=== PATIENT | male | born 1955 | race Caucasian/White ===

== ENCOUNTER 2019-07-12 00:15 | Day surgery (SDC) | payer OTHER, SELFPAY ==
[2019-07-06 13:34] VITALS: BMI 27.5
--- NOTE | 2019-07-11 10:11 | WPDANESEPP ---
Anes - Eval Pre Procedure Procedure: Operation Date: 07/12/19 07:30 Proposed Procedures p Screening Colonoscopy - Zach Torres MD Date/Time: 07/11/19 10:11 Pre Op Diagnosis: Neoplasm screening, hx colon polyps Patient Data Age: 64 Gender: M Height: 1.78 m Weight: 87 kg Allergies Allergy/AdvReac Type Severity Reaction Status Date / Time Penicillins Allergy Unknown Dermatitis Verified 07/06/19 13:29 Home Medications Medication Instructions Recorded Confirmed Type fenofibrate nanocrystallized 145 145 mg PO DAILY 05/28/19 07/06/19 History mg tablet finasteride 5 mg tablet 5 mg PO DAILY 05/28/19 07/06/19 History latanoprost 0.005 % eye drops 1 drop EACH EYE DAILY 05/28/19 07/06/19 History tamsulosin 0.4 mg capsule 0.4 mg PO DAILY 05/28/19 07/06/19 History lifitegrast [Xiidra] drp OPHTHALMIC (EYE) HS 07/06/19 History sildenafil (pulm.hypertension) 500 mg PO DAILY PRN 07/06/19 07/06/19 History Patient hx anesthesia problems: none Family hx anesthesia problems: none PMFSH Family History Family History Mother Acute myocardial infarction Family history of Alzheimer's disease, Onset Age: 86 Father Family history of Alzheimer's disease, Onset Age: 89 Social History Social History Smoking status: Never smoker Alcohol intake: current Exam Day of Procedure 07/11/19 10:11
[2019-07-12 06:24] VITALS: BP 153/78; PULSE 60; RESP 16; TEMP 36.8; O2SAT 100
[2019-07-12] MEDS: LACTATED RINGERS 1,000 ML 150 ML IV CONT (06:44)
--- NOTE | 2019-07-12 06:49 | WPDANESEFPP ---
Anes - Eval Final PreProcedure Day of Procedure 07/12/19 06:49 Patient weight: overweight Heart: regular rate and rhythm Lungs: clear to auscultation Airway: Mallampati scale class II Neurological: alert and oriented Last oral intake: >/= 8 hours ASA classification: II Emergent: no Anesthetic plan: proceed Anesthesia type and monitoring: general GIVS and standard monitoring Informed Consent: The patient's anesthetic plan and its attendant risks and benefits were discussed with the patient/family/POA. Questions were solicited and answers provided to the satisfaction of the patient/family/POA.
--- NOTE | 2019-07-12 07:19 | WPDGICN ---
Assessment and Plan Additional Plan This is a 64-year-old white male patient seen in evaluation at the request of Dr. Lloyd. Patient presents for neoplasia screening colonoscopy. Current weight appetite bowel movements are normal. Patient has a history of colon polyps on previous colonoscopy. Patient current we states his bowel habits are normal. He denies blood in his stools. He denies abdominal pain. Family history is noncontributory. Past medical history is significant for hypertension. Current medications include fenofibrate. Finasteride. Tamsulosin. Allergy noted to penicillin. Physical exam reveals patient to be alert. Vital signs stable. HEENT exam unremarkable. Lungs are clear to auscultation and percussion. Heart is without murmur or extra sounds. Abdominal exam bowel sounds are present soft nontender with no hepatosplenomegaly. Digital external rectal exam is normal. Impression 1. Personal history of colon polyps. Plan is for screening colonoscopy. GI Consult Note Consult date/time: 07/12/19 07:19 HPI: Nithin Jackman is a 64 year old male [facility], [facility] Family History Family History Mother Acute myocardial infarction Family history of Alzheimer's disease, Onset Age: 86 Father Family history of Alzheimer's disease, Onset Age: 89 Social History Social History Smoking status: Never smoker Alcohol intake: current Meds Home Medications and Allergies Home Medications Medication Instructions Recorded Confirmed Type fenofibrate nanocrystallized 145 145 mg PO DAILY 05/28/19 07/12/19 History mg tablet finasteride 5 mg tablet 5 mg PO DAILY 05/28/19 07/12/19 History latanoprost 0.005 % eye drops 1 drop EACH EYE DAILY 05/28/19 07/12/19 History tamsulosin 0.4 mg capsule 0.4 mg PO DAILY 05/28/19 07/12/19 History lifitegrast [Xiidra] 1 drp OPHTHALMIC (EYE) HS 07/06/19 07/12/19 History sildenafil (pulm.hypertension) 500 mg PO DAILY PRN 07/06/19 07/12/19 History Allergies Allergy/AdvReac Type Severity Reaction Status Date / Time Penicillins Allergy Unknown Dermatitis Verified 07/12/19 06:20 Vital Signs Vital Signs - 24 hr 07/12/19 06:24 Temperature 36.8 C Pulse Rate 60 Respiratory Rate 16 Blood Pressure 153/78 H Pulse Oximetry 100
[2019-07-12 07:42] VITALS: BP 94/49; PULSE 55; RESP 16; O2SAT 97
[2019-07-12 07:52] VITALS: BP 91/54; PULSE 51; RESP 16; O2SAT 98
[2019-07-12 08:02] VITALS: BP 91/54; PULSE 59; RESP 16; O2SAT 98
== END 2019-07-12 08:30 | disposition home or self-care (01) ==
PROVIDERS: PCP Family Medicine; Visit Provider Internal Medicine Gastroenterology
PROC: 0DJD8ZZ Inspection of Lower Intestinal Tract, Via Natural or Artificial Opening Endoscopic (ICD-10-PCS; CPT 45378; principal; 2019-07-12 07:30)
DX: Z12.11 Encounter for screening for malignant neoplasm of colon (principal); K63.5 Polyp of colon; K64.8 Other hemorrhoids; I10 Essential (primary) hypertension
CPT/HCPCS: 45385; 88305; J2704; J7120

== ENCOUNTER 2025-03-22 18:19 | Emergency (ER) | payer MEDICARE, SELFPAY ==
--- NOTE | ~2025-03-22 | XR_ITS ---
XR finger 5th LT min 2V INDICATION: pain COMPARISON: None FINDINGS: Frontal, lateral and oblique views of the left fifth finger demonstrate nondisplaced fracture of the distal tuft of the fifth finger. IMPRESSION: Nondisplaced fracture of the history top of the fifth finger Reviewed, dictated and finalized at location S.
--- NOTE | 2025-03-22 18:20 | ED.UPPEXIN ---
HPI - Extremity Injury (Upper) General Chief Complaint: Extremity Injury, Upper Stated Complaint: L 5TH FINGER INJURY Time Seen by Provider: 03/22/25 18:20 Source: patient Mode of arrival: ambulatory Limitations: no limitations History of Present Illness HPI narrative: Nithin is a 70 year old male patient presenting to the clinic today with c/o left 5th finger injury. He reports that he was wiping up the floor after it was mom and bumped a in table and fell down on to his left 5th finger. Has pain, bruising, and swelling to the distal 5th finger. This happened around 1:00 p.m. this afternoon. Rates pain 3 to 4/10. Has taken ibuprofen for pain Related Data Home Medications ?Medication ?Instructions ?Recorded ?Confirmed ?Last Taken ?Type latanoprost 0.005 % eye drops 1 drop ophthalmic (eye) DAILY 05/28/19 03/22/25 Unknown History lifitegrast 5 % eye drops in a 1 drp ophthalmic (eye) HS 07/06/19 03/22/25 Unknown History dropperette (Xiidra) Allergies Allergy/AdvReac Type Severity Reaction Status Date / Time Penicillins Allergy Unknown Dermatitis Verified 03/22/25 18:30 Review of Systems Review of Systems: Pertinent positives per HPI. Patient denies any fever, chills, rash, headache, visual changes, dizziness, cough, runny nose, sore throat, shortness of breath, chest pain, palpitations, nausea, vomiting, diarrhea, constipation, abdominal pain, or any urinary issues. [facility] Past Medical History Medical History Ingrown toenail of right foot with infection Renal insufficiency, mild (09/29/23) BUN 25, creatinine 1.36 with GFR 57 on 09/29/2023. BUN 19, creatinine 1.35 with GFR 57 on 06/17/2024. GFR 61 on 10/28/2024. BMI 24.0-24.9, adult At low risk for fall BMI 26.0-26.9,adult Hypothyroidism, unspecified (~02/12/23) TSH elevated at 4.77 on 02/12/2023. TSH 2.21, free T4 1.1, T3 total 103 on 09/29/2023. TSH 3.06 on 06/17/2024. COVID-19 (05/28/22) tested positive 05/29/2022 Acute non-recurrent maxillary sinusitis Right knee pain (~01/22/22) Chronic serous otitis media of left ear Overweight (BMI 25.0-29.9) BMI 25.0-25.9,adult BMI 27.0-27.9,adult Eczema Nocturia PSA normal at 1.7 on 01/25/2022. Encounter for prostate cancer screening PSA 1.7 on 01/25/2022. PSA 1.43 on 02/12/2023. PSA 1.67 on 06/17/2024. Abnormal fasting glucose Glucose 101 with hemoglobin A1c 5.4 on 01/25/2022. Fasting glucose 98 on 08/21/2022. Glucose 103, hemoglobin A1c 5.4 on 02/12/2023. Glucose 107 with hemoglobin A1c 5.8 on 09/29/2023. Glucose 110, hemoglobin A1c 5.7, urine microalbumin was negative, GFR 57 on 06/17/2024. Glucose 98 with hemoglobin A1c 5.8 and GFR 61 on 10/28/2024. Cerumen debris on tympanic membrane of both ears Primary hypertension Surgical History Surgical History Status post placement of bone anchored hearing aid (BAHA) 08/16/24 Family History Family History Mother Acute myocardial infarction Family history of Alzheimer's disease, Onset Age: 86 Father Family history of Alzheimer's disease, Onset Age: 89 Neck malignant neoplasm Hypertension Social History Social History Smoking status: Never smoker Alcohol intake: current Drinks per week: 14 Alcohol use details: wine Substance use: never Substance use type: does not use Lack of Transportation: No Lack of Food: Never True Current Housing: I Have Housing Concerned About Future Housing: No Difficulty Paying Gas/Electric Bills: No Difficulty Paying for Meds: No Currently Unemployed: No Education: Master's Degree or Higher Difficulty w/ Childcare or Family Care: No Comments At the time of my signature, I reviewed and agree with the nursing past medical, surgical, social, and family history. There is no relevant family history pertinent to the patient complaint. Exam Narrative: General: Well-developed, well nourished, in no apparent distress Head: Normocephalic, atraumatic. Cardio: Regular rate and rhythm, s1 and s2 normal, no murmur appreciated. Resp: Clear to auscultation bilaterally, no rhonchi, rales, wheezing or rubs. Musculoskeletal: No deformity, swelling, bruising, and tenderness to palpation over the left distal 5th finger, is able to flex and extend the D IP joint, grossly normal range of motion, muscle strength strong and equal, peripheral pulse strong, no edema, no cyanosis, normal gait and station Course Course Emergency Course: Portions of this record may have been created with voice recognition software. Level of Care: Express Care Visit Vital Signs Vital signs: Vital Signs Temperature 36.6 C 03/22/25 18:36 Pulse Rate 16 L 03/22/25 18:36 Respiratory Rate 16 03/22/25 18:36 Blood Pressure 146/74 H 03/22/25 18:36 Pulse Oximetry 97 03/22/25 18:36 Temperature 36.6 C 03/22/25 18:36 Pulse Rate 16 L 03/22/25 18:36 Respiratory Rate 16 03/22/25 18:36 Blood Pressure 146/74 H 03/22/25 18:36 Pulse Oximetry 97 03/22/25 18:36 Vital signs reviewed MDM - Extremity Injury (Upper) MDM Narrative Medical decision making narrative: At the time of visit patient is resting comfortably on the exam table. Patient appears to be nontoxic. C/o left 5th finger injury. He reports that he was wiping up the floor after it was mom and bumped a in table and fell down on to his left 5th finger. Has pain, bruising, and swelling to the distal 5th finger. This happened around 1:00 p.m. this afternoon. Rates pain 3 to 4/10. Has taken ibuprofen for pain. On exam patient has bruising, swelling, and tenderness to the distal left 5th finger. Is able to flex and extend the D IP joint. X-ray of the left 5th finger was ordered Diagnostics: X-ray of the left 5th finger was performed and shows a closed nondisplaced tuft fracture Plan: I suspect the patient has a closed nondisplaced tuft fracture of the left 5th distal finger. Recommend follow-up with PCP in 1 week or may follow-up with Dr. Pringle-wear finger splint for 4 weeks. Rest, ice, and elevate. May take Tylenol and ibuprofen as needed for pain. Supportive measures were discussed with the patient and they voiced understanding discharge instructions and agrees to treatment plan. Return precautions reviewed Differential Diagnosis Differential diagnosis: Likely finger sprain, dislocation of finger and other (Finger fracture) Imaging Data Radiologist's impression: ITS Impressions Finger X-Ray 03/22/25 18:46 IMPRESSION: Nondisplaced fracture of the history top of the fifth finger Discharge Plan Discharge Clinical Impression: Closed fracture of tuft of distal phalanx of finger Patient Disposition: Home Condition: Stable Instructions: Antibiotic Form, Finger Fracture (ED) Additional Instructions: X-ray of the left 5th finger shows a closed nondisplaced tuft fracture Rest, ice, elevate, and wear metal finger splint as discussed Tylenol/motrin for pain as discussed. Follow up with your PCP in 1 week Follow up with Dr. Pringle as discussed. Patient Language: Tuvaluan Prescriptions: No Action sildenafil 100 mg tablet 100 mg PO DAILY PRN (Reason: sexual activity) Qty: 90 2RF Rx Instructions: administer 30 minutes to 4 hours before activity saavedra pay with good Rx discount triamcinolone acetonide 0.5 % cream 1 applic topical BID Qty: 30 3RF Rx Instructions: use for up to 2 weeks at a time for dry skin Xiidra 5 % dropperette 1 drp ophthalmic (eye) HS latanoprost 0.005 % drops 1 drop EACH EYE DAILY levothyroxine 50 mcg tablet 50 mcg PO DAILY Qty: 90 3RF Rx Instructions: take on an empty stomach with water only and no other medicines fenofibrate nanocrystallized 145 mg tablet 145 mg PO DAILY Qty: 90 3RF tamsulosin 0.4 mg capsule 0.4 mg PO DAILY Qty: 90 3RF lisinopril 10 mg tablet 10 mg PO DAILY Qty: 90 3RF finasteride 5 mg tablet 5 mg PO DAILY Qty: 90 3RF Follow-up/Referrals: Karmen Pringle MD [Physician, Plastic Surgery] - 2 Days Clinical Impression: Closed fracture of tuft of distal phalanx of finger Chapo Lloyd., MD [Primary Care Provider, [facility]] Time of Disposition: 18:55 Quality NIHSS Nursing Documentation ED NIHSS nursing documentation: reviewed/agree
[2025-03-22 18:36] VITALS: BP 146/74; PULSE 16; RESP 16; TEMP 36.6; O2SAT 97
== END 2025-03-22 19:00 | disposition home or self-care (01) ==
PROVIDERS: Emergency Provider Nurse Practitioner Family; PCP Family Medicine
DX: S62.667A Nondisplaced fracture of distal phalanx of left little finger, initial encounter for closed fracture (principal); W18.09XA Striking against other object with subsequent fall, initial encounter; E03.9 Hypothyroidism, unspecified; I10 Essential (primary) hypertension; Z86.16 Personal history of COVID-19; N28.9 Disorder of kidney and ureter, unspecified
CPT/HCPCS: 29130; 73140; 99214; G0463

== ENCOUNTER 2025-06-08 08:14 | Emergency (ER) | payer MEDICARE, SELFPAY ==
[2025-06-08 08:25] VITALS: BP 134/76; PULSE 65; RESP 16; TEMP 36.4; O2SAT 99
--- NOTE | 2025-06-08 08:31 | ED_ITS ---
HPI - URI/Sore Throat General Chief Complaint: Upper Respiratory Infection Stated Complaint: strep testing Time Seen by Provider: 06/08/25 08:31 Source: patient Mode of arrival: ambulatory Limitations: no limitations History of Present Illness HPI Narrative: 70-year-old male presents with complaint scratchy, painful throat, fatigue and body aches starting this morning. Patient reports strep exposure from his . No cough, congestion. No chest pain or shortness of breath. All systems reviewed and negative except as noted above. Related Data Home Medications ?Medication ?Instructions ?Recorded ?Confirmed ?Last Taken ?Type latanoprost 0.005 % eye drops 1 drop ophthalmic (eye) DAILY 05/28/19 03/22/25 Unknown History lifitegrast 5 % eye drops in a 1 drp ophthalmic (eye) HS 07/06/19 03/22/25 Unknown History dropperette (Xiidra) brimonidine 0.2 %-timolol 0.5 % drp 06/08/25 Unknown History eye drops netarsudil 0.02 %-latanoprost drp 06/08/25 Unknown Hi story 0.005 % eye drops ([place]latan) Allergies Allergy/AdvReac Type Severity Reaction Status Date / Time Penicillins Allergy Unknown Dermatitis Verified 06/08/25 08:34 [facility] Past Medical History Medical History Ingrown toenail of right foot with infection Renal insufficiency, mild (09/29/23) BUN 25, creatinine 1.36 with GFR 57 on 09/29/2023. BUN 19, creatinine 1.35 with GFR 57 on 06/17/2024. GFR 61 on 10/28/2024. BMI 24.0-24.9, adult At low risk for fall BMI 26.0-26.9,adult Hypothyroidism, unspecified (~02/12/23) TSH elevated at 4.77 on 02/12/2023. TSH 2.21, free T4 1.1, T3 total 103 on 09/29/2023. TSH 3.06 on 06/17/2024. COVID-19 (05/28/22) tested positive 05/29/2022 Acute non-recurrent maxillary sinusitis Right knee pain (~01/22/22) Chronic serous otitis media of left ear Overweight (BMI 25.0-29.9) BMI 25.0-25.9,adult BMI 27.0-27.9,adult Eczema Nocturia PSA normal at 1.7 on 01/25/2022. Encounter for prostate cancer screening PSA 1.7 on 01/25/2022. PSA 1.43 on 02/12/2023. PSA 1.67 on 06/17/2024. Abnormal fasting glucose Glucose 101 with hemoglobin A1c 5.4 on 01/25/2022. Fasting glucose 98 on 08/21/2022. Glucose 103, hemoglobin A1c 5.4 on 02/12/2023. Glucose 107 with hemoglobin A1c 5.8 on 09/29/2023. Glucose 110, hemoglobin A1c 5.7, urine microalbumin was negative, GFR 57 on 06/17/2024. Glucose 98 with hemoglobin A1c 5.8 and GFR 61 on 10/28/2024. Cerumen debris on tympanic membrane of both ears Primary hypertension Surgical History Surgical History Status post placement of bone anchored hearing aid (BAHA) 08/16/24 Family History Family History Mother Acute myocardial infarction Family history of Alzheimer's disease, Onset Age: 86 Father Family history of Alzheimer's disease, Onset Age: 89 Neck malignant neoplasm Hypertension Social History Social History Smoking status: Never smoker Alcohol intake: current Drinks per week: 14 Alcohol use details: wine Substance use: never Substance use type: does not use Lack of Transportation: No Lack of Food: Never True Current Housing: I Have Housing Concerned About Future Housing: No Difficulty Paying Gas/Electric Bills: No Difficulty Paying for Meds: No Currently Unemployed: No Education: Master's Degree or Higher Difficulty w/ Childcare or Family Care: No Comments At time of signature, agree with nursing past medical, surgical, social and family history. There is no relevant family history pertinent to the presenting complaint. Exam Narrative: GENERAL: This is a well-nourished, well-developed patient, in no apparent distress. HEAD: normocephalic, atraumatic. EYES: PERRL. Sclera clear/white. Vision is grossly intact. EARS: External ears normal, auditory canals clear and without drainage, TMs normal without perforation. Hearing grossly intact. NOSE: External nose normal with no obvious nasal discharge, nares without redness, no rhinorrhea. THROAT: Mucous membranes moist, Erythematous with mild swelling. No exudates NECK: Neck supple, non-tender without lymphadenopathy, masses or thyromegaly. CARDIOVASCULAR: Regular rate and rhythm without murmurs, gallops, or rubs. RESPIRATORY: Clear to auscultation. Breath sounds equal bilaterally. No wheezes, rales, or rhonchi. SKIN: warm, Dry, intact with no suspicious lesions or rash, good texture and turgor. NEURO: awake, alert, and oriented to person, place and time. There were no obvious focal neurologic abnormalities. EXTREMITIES: No joint tenderness, effusion, or edema noted. Course Course Level of Care: Express Care Visit Vital Signs Vital signs: Vital Signs Temperature 36.4 C 06/08/25 08:25 Pulse Rate 65 06/08/25 08:25 Respiratory Rate 16 06/08/25 08:25 Blood Pressure 134/76 06/08/25 08:25 Pulse Oximetry 99 06/08/25 08:25 Temperature 36.4 C 06/08/25 08:25 Pulse Rate 65 06/08/25 08:25 Respiratory Rate 16 06/08/25 08:25 Blood Pressure 134/76 06/08/25 08:25 Pulse Oximetry 99 06/08/25 08:25 reviewed MDM MDM Narrative Medical decision making narrative: negative rapid strep. Patient's positive for strep throat yesterday. Will treat patient with antibiotic due to patient's symptoms, exam findings and strep exposure. Differential Diagnosis Differential Diagnosis: Differential diagnostic considerations for upper respiratory infection include upper respiratory infection, croup, otitis media, sinusitis, viral infection, bronchitis, influenza, pharyngitis, strep, uvulitis.? Lab Data Labs: Lab Results 06/08/25 Range/Units 08:38 POC Influenza A Ag Negative (Negative) POC Influenza B Ag Negative (Negative) POC SARS CoV-2 Ag Negative (Negative) POC Grp A Strep Screen Negative (Negative) Discharge Plan Discharge Clinical Impression: Acute pharyngitis, Exposure to strep throat Patient Disposition: Home Condition: Stable Instructions: Antibiotic Form, Pharyngitis (ED) Additional Instructions: take antibiotic as prescribed until gone. Change toothbrush after taking antibiotic for 24 hours. Take Tylenol or ibuprofen every 6-8 hours as needed for pain and fever. Drink plenty of water and rest. See your doctor if symptoms are not improving. Patient Language: [place] Prescriptions: New azithromycin 250 mg tablet See Rx Instructions .ROUTE .COMPLEX Qty: 6 0RF Rx Instructions: For 250 mg dose pack: take 500 mg today (day 1), then 250 mg for 4 days (days 2-5) No Action brimonidine-timolol 0.2-0.5 % drops [place] 0.02-0.005 % drops sildenafil 100 mg tablet 100 mg PO DAILY PRN (Reason: sexual activity) Qty: 90 2RF Rx Instructions: administer 30 minutes to 4 hours before activity saavedra pay with good Rx discount triamcinolone acetonide 0.5 % cream 1 applic topical BID Qty: 30 3RF Rx Instructions: use for up to 2 weeks at a time for dry skin Xiidra 5 % dropperette 1 drp ophthalmic (eye) HS latanoprost 0.005 % drops 1 drop EACH EYE DAILY tamsulosin 0.4 mg capsule 0.4 mg PO DAILY Qty: 90 3RF lisinopril 10 mg tablet 10 mg PO DAILY Qty: 90 3RF finasteride 5 mg tablet 5 mg PO DAILY Qty: 90 3RF fenofibrate nanocrystallized 145 mg tablet 145 mg PO DAILY Qty: 90 3RF levothyroxine 50 mcg tablet 50 mcg PO DAILY Qty: 90 3RF Rx Instructions: take on an empty stomach with water only and no other medicines Follow-up/Referrals: Chapo Lloyd MD [Primary Care Provider, Family Practice] Time of Disposition: 08:42
[2025-06-08 08:40] LABS: EDCOVIDSCREEN Negative (Negative); EDINFLUASCREEN Negative (Negative); EDINFLUBSCREEN Negative (Negative)
[2025-06-08 08:41] LABS: EDSTREPNEGPOS1 Negative (Negative)
== END 2025-06-08 08:50 | disposition home or self-care (01) ==
PROVIDERS: Emergency Provider Nurse Practitioner Family; PCP Family Medicine
DX: J02.9 Acute pharyngitis, unspecified (principal); E03.9 Hypothyroidism, unspecified; H65.22 Chronic serous otitis media, left ear; I10 Essential (primary) hypertension; Z20.822 Contact with and (suspected) exposure to COVID-19
CPT/HCPCS: 87081; 87426; 87804; 87880; 99213; G0463